=== PATIENT | female | born 1985 | race Two or more races ===

== ENCOUNTER → 2021-08-18 | Outpatient (CLI) | payer OTHER, SELFPAY | END | disposition home or self-care (01) | LOC: LABSPEC 11:38 | PROVIDERS: PCP Internal Medicine; Referring Provider Physician Assistant; Visit Provider Physician Assistant | DX: Z11.52 Encounter for screening for COVID-19 (principal) | CPT/HCPCS: 87635; U0005; U0003 ==

== ENCOUNTER 2021-08-24 15:51 | Outpatient (CLI) | payer OTHER, SELFPAY | END 2021-08-24 23:59 | disposition short-term general hospital (02) | LOC: LABSPEC 15:53 | PROVIDERS: PCP Internal Medicine; Referring Provider Physician Assistant Surgical; Visit Provider Physician Assistant Surgical | DX: Z11.52 Encounter for screening for COVID-19 (principal) | CPT/HCPCS: 87635; U0003; U0005 ==

== ENCOUNTER 2023-08-16 21:07 | Emergency (ER) | payer OTHER, SELFPAY ==
[2023-08-16 21:08] VITALS: BP 159/83; PULSE 69; RESP 18; TEMP 36.6; O2SAT 100; BMI 39.7
--- NOTE | 2023-08-16 21:50 | RAD_ITS ---
INDICATION: 3rd digit EXAMINATION/TECHNIQUE: X-RAY - LEFT XR Hand Min 3 Views COMPARISON: None. FINDINGS: SOFT TISSUES: Unremarkable. BONES/JOINTS: No fracture or dislocation. No significant degenerative changes. No erosive changes. RAD/Hand Min 3 Views IMPRESSION: Unremarkable views of the left hand. Electronically Signed: Edwin Man DO at 22:18 EST ,
--- NOTE | 2023-08-16 22:09 | EDS_ITS ---
HPI History of Present Illness Chief Complaint: Laceration Informant: patient Narrative Narrative: [id number] 37-year-old healthy female states she was cleaning a glass punch bowl when it broke and caused a laceration to her left middle finger. It was the glass that caused the laceration. Denies any loss of function she is not on any blood thinning agents. Tetanus Immunization: >10 years (About 11 years) PFSH PFSH Medical History no medical history no medical history Home Medications vits,calcium no.78-iron fumarate-folic acid 29 mg-1 mg tablet (Prenatabs FA) 1 tab PO DAILY 01/01/15 [History Last Taken 12/31/14 08:00] Allergy/AdvReac Type Severity Reaction Status Date / Time NSAIDS (Non-Steroidal Allergy Other Verified 08/16/23 21:09 Anti-Inflamma Social History Smoking Status: Never smoker ROS ROS ED Constitutional Constitutional ED: Denies chills or fever(s) Musculoskeletal Musculoskeletal: Reports extremity pain; Denies neck pain Integumentary Reports laceration; Denies Abrasions or rash Neurologic Neurologic: Denies paresthesias or weakness EXAM Physical Exam Const Vital Signs: 08/16/23 21:08 Temperature 97.8 F Temperature Source Temporal Pulse Rate 69 Respiratory Rate 18 Blood Pressure 159/83 H Blood Pressure Mean 108 Pulse Ox 100 Oxygen Delivery Method Room Air Positive well nourished and well developed General Appearance ED: well developed and NAD Neck full ROM and supple Back/Spine normal ROM and normal to inspection Extremity full ROM Extremity Narrative: V-shaped full-thickness clean appearing laceration to the pad of the left middle finger. No joint or nail involvement. Able to flex the DIPJ without difficulty. Neuro oriented x3, no focal motor deficits and no sensory deficits noted Sensorium / Orientation: alert Psych mental status grossly normal and thought process normal Skin Skin Narrative: Laceration pad of left middle finger, 3 cm total. Rashes: no rashes MDM MDM MDM Narrative Medical decision making narrative: Three-view x-rays of the left hand were obtained via nurse protocol order, on my interpretation 3 views negative for acute bony injury or radiopaque foreign body. We discussed options for anesthesia and local repair here, she was amen able to local let followed by local anesthesia and repair without digital block. Given appropriate discharge instructions. We did discuss tetanus update she wanted to wait, I think that is fine this is a low risk tetanus wound. Procedures Lacerations L middle finger pad: Length: 3 cm Depth: Sub Q Shape: Flap (V-shaped) Prep: Sterile Conditions and Chlorhexadine Number of Sutures/Ania: 7 Suture Information: Ethilon, Simple and 5-0 Discharge Plan Triage Chief Complaint: Laceration ED Provider: Jim Bell Dx/Rx/DC Orders Clinical Impression: Laceration of left middle finger w/o foreign body w/o damage to nail Instructions: ED Laceration, Hand: All Closures Prescriptions: No Action Prenatabs FA 1 TABLET tablet 1 tab PO DAILY Primary Care Provider: Seamus Cloud Referrals: Seamus Cloud DO [Primary Care Provider] - 10-14 Days suture removal Disposition Disposition: Home, Self Care
[2023-08-16] MEDS: Lidocaine/Epi/Tetracaine 50 ML 1 APPLIC TOPICAL (22:18)
--- OUTSIDE RECORDS SUMMARY | 2023-08-16 22:19 | XMS RPT_ITS | CCD ---
Author Name Unknown Address [address] [place] [address] Organization [facility] Care Team Providers Care New Home Sales Consultant Name Role Phone Seamus Erickson DO Primary Care Provider DREW GUNDERSON Attending Unavailable SEAMUS ERICKSON Primary Care Unavailable SEAMUS ERICKSON Primary Care Unavailable SEAMUS ERICKSON Primary Care Unavailable SEAMUS ERICKSON Referring Unavailable SEAMUS ERICKSON Primary Care Unavailable SEAMUS ERICKSON Attending Unavailable SEAMUS ERICKSON Primary Care Unavailable Allergies Allergy Classification Reported Allergen(s) Allergy Type Date of Onset Reaction(s) Facility (6 sources) Non-steroidal anti-inflammator y agent; Translations: [NSAIDS (NON-STEROIDAL ANTI-INFLAMMATOR Y DRUG)] Drug Allergy 02-17-2011 [facility] Work Phone: (9 sources) Non-steroidal anti-inflammator y agent Drug [facility] Medications Current Medications Medication Drug Class(es) Dates Sig (Normalized) Sig (Original) LORazepam 0.5 mg oral tablet (1 source) Benzodiazepine Start: 05-03-2023 End: 05-17-2023 take 1 tablet by mouth twice daily as needed for anxiety LORazepam (ATIVAN) 0.5 mg Indications: Bereavement , Situational anxiety Take 1 tablet by mouth twice daily as needed (anxiety attack, situational insomnia) for up to 14 days. 28 tablet 0 05/03/2023 05/17/2023 Active Completed/Discontinued Medications Medication Drug Class(es) Dates Sig (Normalized) Sig (Original) escitalopram 10 mg oral tablet (3 sources) Serotonin Reuptake Inhibitor Start: 05-03-2023 take 1 tablet by mouth once daily escitalopram oxalate (LEXAPRO) 10 mg tablet Indications: Bereavement , Situational anxiety Take 1 tablet by mouth once daily. 30 tablet 3 05/03/2023 Active Problems Active Problems Problem Classification Problem Date Documented Date Episodic/Chronic Anxiety disorders (14 sources) Anxiety; Translations: [Anxiety disorder, unspecified] Onset: 08-12-2009 08-16-2021 Chronic Genitourinary symptoms and ill-defined conditions (1 source) Increased frequency of urination; Translations: [Frequency of micturition] 05-08-2023 Episodic Immunizations and screening for infectious disease (1 source) Patient encounter status; Translations: [Encounter for screening for human papillomavirus (HPV)] Episodic Menopausal disorders (7 sources) Perimenopausal disorder; Translations: [Unspecified menopausal and perimenopausal disorder] Onset: 10-28-2022 Chronic Other injuries and conditions due to external causes (11 sources) Injury of right knee; Translations: [Unspecified injury of right lower leg, initial encounter] Onset: 01-11-2022 Episodic Other nervous system disorders (2 sources) Abnormal gait; Translations: [Unspecified abnormalities of gait and mobility] Episodic Other non-traumatic joint disorders (2 sources) Decreased range of knee movement; Translations: [Stiffness of right knee, not elsewhere classified] Episodic Other non-traumatic joint disorders (1 source) Effusion of right knee joint; Translations: [Effusion, right knee] Episodic Other nutritional; endocrine; and metabolic disorders (14 sources) Obesity; Translations: [Obesity, unspecified] Onset: 12-28-2011 08-16-2021 Chronic Past or Other Problems Problem Classification Problem Date Documented Da te Episodic/Chronic Abdominal hernia (14 sources) Umbilical hernia; Translations: [Umbilical hernia without obstruction or gangrene] Onset: 10-23-2014 10-23-2014 Episodic Other screening for suspected conditions (not mental disorders or infectious disease) (15 sources) Atypical glandular cells on cervical Papanicolaou smear; Translations: [Unspecified abnormal cytological findings in specimens from cervix uteri] Onset: 06-16-2020 06-16-2020 Episodic Residual codes; unclassified (16 sources) Kidney donor; Translations: [Kidney donors] Onset: 02-18-2010 08-16-2021 Episodic Viral infection (14 sources) Herpes simplex type 1 infection; Translations: [Herpesviral infection, unspecified] Onset: 08-16-2018 08-16-2018 Episodic Results Test Name Value Interpretation Reference Range Facil ity Vital Signs Date Time Vital Sign Value Performing Clinician Harry angelo 05-08-2023 09:20-0400 Body temperature 97.5 [degF] Celia Coleer FIRE PROTECTION ENGINEERING TECHNICIAN.HANDLE SANDER OPERATOR Work Phone: [facility] 05-08-2023 09:20-0400 Body weight 124.01 kg Celialeslie Coleer FIRE PROTECTION ENGINEERING TECHNICIAN.HANDLE SANDER OPERATOR Work Phone: [facility] 05-08-2023 09:20-0400 Diastolic blood pressure 83 mm[Hg] Celia Lenz FIRE PROTECTION ENGINEERING TECHNICIAN.HANDLE SANDER OPERATOR Work Phone: [facility] 05-08-2023 09:20-0400 Heart rate 57 /min Celia Coleer FIRE PROTECTION ENGINEERING TECHNICIAN.HANDLE SANDER OPERATOR Work Phone: [facility] 05-08-2023 09:20-0400 Respiratory rate 18 /min Celialeslie Coleer FIRE PROTECTION ENGINEERING TECHNICIAN.HANDLE SANDER OPERATOR Work Phone: [facility] 05-08-2023 09:20-0400 SaO2% (BldA) [Mass fraction] 99 % Celia Lenz FIRE PROTECTION ENGINEERING TECHNICIAN.HANDLE SANDER OPERATOR Work Phone: [facility] 05-08-2023 09:20-0400 Systolic blood pressure 136 mm[Hg] Celia Lenz FIRE PROTECTION ENGINEERING TECHNICIAN.HANDLE SANDER OPERATOR Work Phone: [facility] 10-28-2022 10:31-0500 Body height 180 cm Seamus Erickson DO Work Phone: [facility] 10-28-2022 10:31-0500 Body temperature 97 [degF] Seamus Erickson DO Work Phone: [facility] 10-28-2022 10:31-0500 Body weight 122.47 kg Seamus Erickson DO Work Phone: [facility] 10-28-2022 10:31-0500 Diastolic blood pressure 60 mm[Hg] Seamus Erickson DO Work Phone: [facility] 10-28-2022 10:31-0500 Heart rate 64 /min Seamus Erickson DO Work Phone: [facility] 10-28-2022 10:31-0500 Respiratory rate 16 /min Seamus Erickson DO Work Phone: [facility] 10-28-2022 10:31-0500 Systolic blood pressure 98 mm[Hg] Seamus Erickson DO Work Phone: [facility] 09-12-2022 10:02-0500 Body height 180.3 cm Drew Gunderson MD Work Phone: [facility] 09-12-2022 10:02-0500 Body weight 124.19 kg Drew Gunderson MD Work Phone: [facility] 09-12-2022 10:02-0500 Diastolic blood pressure 78 mm[Hg] Drew Gunderson MD Work Phone: [facility] 09-12-2022 10:02-0500 Systolic blood pressure 120 mm[Hg] Drew Gunderson MD Work Phone: [facility] 01-10-2022 11:23-0400 Body weight 120.66 kg Christy Rashid FIRE PROTECTION ENGINEERING TECHNICIAN.HANDLE SANDER OPERATOR Work Phone: [facility] 01-10-2022 11:23-0400 Diastolic blood pressure 68 mm[Hg] Christy Rashid FIRE PROTECTION ENGINEERING TECHNICIAN.HANDLE SANDER OPERATOR Work Phone: [facility] 01-10-2022 11:23-0400 Heart rate 71 /min Christy Rashid FIRE PROTECTION ENGINEERING TECHNICIAN.HANDLE SANDER OPERATOR Work Phone: [facility] 01-10-2022 11:23-0400 Respiratory rate 16 /min Christy Rashid FIRE PROTECTION ENGINEERING TECHNICIAN.HANDLE SANDER OPERATOR Work Phone: [facility] 01-10-2022 11:23-0400 SaO2% (BldA) [Mass fraction] 98 % Christy Rashid FIRE PROTECTION ENGINEERING TECHNICIAN.HANDLE SANDER OPERATOR Work Phone: [facility] 01-10-2022 11:23-0400 Systolic blood pressure 100 mm[Hg] Christy Rashid FIRE PROTECTION ENGINEERING TECHNICIAN.HANDLE SANDER OPERATOR Work Phone: [facility] Encounters Encounter Date Encounter Type Care Provider Facility Start: 06-23-2023 End: 06-23-2023 ambulatory Immunization [facility] Work Phone: [facility] Start: 05-08-2023 End: 05-08-2023 ambulatory SEAMUS Niharika ERICKSON Facility:[facility] Start: 05-08-2023 End: 05-08-2023 Patient encounter procedure Celialeslie Lenz FIRE PROTECTION ENGINEERING TECHNICIAN.HANDLE SANDER OPERATOR Work Phone: [facility] Procedures Date Procedure Procedure Detail Performing Clinician Start: 06-23-2023 PFIZER-BIONTECH COVI D-19 VACCINE ( SEASON) AGE 12+ YR Ab Uribe MD Work Phone: Start: 06-23-2023 INFLUENZA VACCINE, A GE 6 MO - 64 YR, QUADRIVALENT (AFLURIA, FLULAVAL, FLUZONE) Ab Uribe MD Work Phone: Start: 05-08-2023 Urnls dip stick/tabl et rgnt auto w/o microscopy Lilian Day APRN.HANDLE SANDER OPERATOR Work Phone: Start: 09-12-2022 Cytp c/v auto thin l yr prepj scr mnl rescr phys Drew Gunderson MD Work Phone: Start: 09-12-2022 Iadna human papillom avirus high-risk types Drew Gunderson MD Work Phone: Start: 05-14-2022 PFIZER-BIONTECH COVI D-19 BIVALENT BOOSTER VACCINE, AGE 12+ YR Dusty Figueroa MD Work Phone: Start: 05-14-2022 INFLUENZA VACCINE QUADRIVALENT 6 MO - 64 YRS IM Dusty Figueroa MD Work Phone: Start: 06-14-2021 Adult depression scr eening assessment Christy Mike FIRE PROTECTION ENGINEERING TECHNICIAN.HANDLE SANDER OPERATOR Work Phone: Plan of Treatment Date Care Activity Detail Author Start: 09-12-2027 HPV TESTING HPV TESTING [facility] Start: 09-12-2027 PAP TESTING PAP TESTING [facility] Start: 06-09-2025 HPV TESTING HPV TESTING [facility] Start: 06-09-2025 PAP TESTING PAP TESTING [facility] Start: 10-03-2024 Urine microalbumin profile [facility] Start: 05-08-2023 End: 07-08-2023 Bacteria identified in Urine by Culture [facility] Work Phone: Immunizations Immunization Date Immunization Notes Care Provider Milton garayashly 06-23-2023 COVID-19 vaccine, ag e 12+ yr, season (PFIZER-BIONTECH) Immunization [place] Work Phone: [facility] Work Phone: 06-23-2023 influenza, injectabl e, quadrivalent, contains preservative Immunization [place] Work Phone: [facility] Work Phone: 05-14-2022 COVID-19 booster vaccine, age 12+ yr, bivalent (PFIZER-BIONTECH) Immunization [place] Work Phone: [facility] Work Phone: 05-14-2022 influenza, injectabl e, quadrivalent, contains preservative Immunization [place] Work Phone: [facility] 05-14-2022 influenza virus vaccine, unspecified formulation Seamus Erickson DO Work Phone: [facility] 05-15-2021 influenza, injectabl e, quadrivalent, contains preservative Christy Rashid FIRE PROTECTION ENGINEERING TECHNICIAN.HANDLE SANDER OPERATOR Work Phone: [facility] Work Phone: 05-30-2020 influenza, injectabl e, quadrivalent, contains preservative Christy Rashid FIRE PROTECTION ENGINEERING TECHNICIAN.HANDLE SANDER OPERATOR Work Phone: [facility] 06-23-2019 influenza, injectabl e, quadrivalent, contains preservative Christy Rashid FIRE PROTECTION ENGINEERING TECHNICIAN.HANDLE SANDER OPERATOR Work Phone: [facility] 06-02-2018 influenza, injectabl e, quadrivalent, contains preservative Christy Rashid FIRE PROTECTION ENGINEERING TECHNICIAN.HANDLE SANDER OPERATOR Work Phone: [facility] 07-11-2016 influenza, seasonal, injectable Christy Rashid FIRE PROTECTION ENGINEERING TECHNICIAN.HANDLE SANDER OPERATOR Work Phone: [facility] Work Phone: 10-03-2014 tetanus toxoid, reduced diphtheria toxoid, and acellular pertussis vaccine, adsorbed Christy Rashid FIRE PROTECTION ENGINEERING TECHNICIAN.[facility] Work Phone: [facility] Work Phone: 06-02-2014 influenza, seasonal, injectable Christy Rashid FIRE PROTECTION ENGINEERING TECHNICIAN.[facility] Work Phone: [facility] Work Phone: 05-25-2012 influenza virus vaccine, unspecified formulation Christy Rashid FIRE PROTECTION ENGINEERING TECHNICIAN.[facility] Work Phone: [facility] Work Phone: 06-30-2011 influenza virus vaccine, unspecified formulation Christy Rashid FIRE PROTECTION ENGINEERING TECHNICIAN.[facility] Work Phone: [facility] Work Phone: 06-30-2011 tetanus toxoid, reduced diphtheria toxoid, and acellular pertussis vaccine, adsorbed Christy Rashid FIRE PROTECTION ENGINEERING TECHNICIAN.[facility] Work Phone: [facility] Work Phone: 03-25-1998 diphtheria and tetan us toxoids, adsorbed for pediatric use Christy Rashid FIRE PROTECTION ENGINEERING TECHNICIAN.[facility] Work Phone: [facility] Work Phone: 03-25-1998 hepatitis B vaccine, pediatric or pediatric/adolescent dosage Christy Rashid FIRE PROTECTION ENGINEERING TECHNICIAN.HANDLE SANDER OPERATOR Work Phone: [facility] Work Phone: 04-18-1997 hepatitis B vaccine, pediatric or pediatric/adolescent dosage Christy Rashid FIRE PROTECTION ENGINEERING TECHNICIAN.[facility] Work Phone: [facility] Work Phone: 03-14-1997 hepatitis B vaccine, pediatric or pediatric/adolescent dosage Christy Rashid FIRE PROTECTION ENGINEERING TECHNICIAN.[facility] Work Phone: [facility] Work Phone: 02-16-1996 measles, mumps and rubella virus vaccine Christy Rashid FIRE PROTECTION ENGINEERING TECHNICIAN.[facility] Work Phone: [facility] Work Phone: 10-26-1988 diphtheria, tetanus toxoids and acellular pertussis vaccine Christy Rashid FIRE PROTECTION ENGINEERING TECHNICIAN.[facility] Work Phone: [facility] Work Phone: 10-26-1988 trivalent poliovirus vaccine, live, oral Christy Rashid FIRE PROTECTION ENGINEERING TECHNICIAN.[facility] Work Phone: [facility] Work Phone: 10-12-1985 haemophilus influenz ae type b vaccine, HbOC conjugate Christy Rashid FIRE PROTECTION ENGINEERING TECHNICIAN.[facility] Work Phone: [facility] Work Phone: 07-25-1985 measles, mumps and rubella virus vaccine Christy Rashid FIRE PROTECTION ENGINEERING TECHNICIAN.[facility] Work Phone: [facility] Work Phone: 07-25-1985 trivalent poliovirus vaccine, live, oral Christy Rashid FIRE PROTECTION ENGINEERING TECHNICIAN.[facility] Work Phone: [facility] Work Phone: 01-02-1985 diphtheria, tetanus toxoids and acellular pertussis vaccine Christy Rashid FIRE PROTECTION ENGINEERING TECHNICIAN.[facility] Work Phone: [facility] Work Phone: 05-14-1984 DTaP-Haemophilus influenzae type b conjugate vaccine Christy Rashid FIRE PROTECTION ENGINEERING TECHNICIAN.HANDLE SANDER OPERATOR Work Phone: [facility] Work Phone: 02-29-1984 DTaP-Haemophilus influenzae type b conjugate vaccine Christy Rashid FIRE PROTECTION ENGINEERING TECHNICIAN.[facility] Work Phone: [facility] Work Phone: 02-29-1984 trivalent poliovirus vaccine, live, oral Christy Rashid FIRE PROTECTION ENGINEERING TECHNICIAN.[facility] Work Phone: [facility] Work Phone: 1983 DTaP-Haemophilus influenzae type b conjugate vaccine Christy Rashid FIRE PROTECTION ENGINEERING TECHNICIAN.HANDLE SANDER OPERATOR Work Phone: [facility] Work Phone: 1985 trivalent poliovirus vaccine, live, oral Christy Mike FIRE PROTECTION ENGINEERING TECHNICIAN.HANDLE SANDER OPERATOR Work Phone: [facility] Work Phone: Payers Date Payer Category Payer Private Health Insurance [employer] A ETNA CHOICE POS II [id number] 2019-Present [phone] [address] [place] [address] POS [id number] 2019 Private Health Insurance [id number] 2019 Private Health Insurance [id number] Social History Date Type Detail Facility Start: 10-28-2022 Tobacco smoking stat [facility] Never smoked tobacco [facility] Start: 01-10-2022 End: 05-08-2023 Alcohol intake Current drinker of alcohol (finding) [facility] Start: 06-14-2021 End: 10-24-2022 History SDOH Alcohol Frequency 3 [facility] Start: 06-14-2021 End: 10-24-2022 History SDOH Alcohol Std Drinks 1 [facility] Start: 06-14-2021 End: 10-24-2022 History SDOH Social Connections Phone 5 [facility] Start: 06-14-2021 End: 10-24-2022 History SDOH Social Connections Get Together 2 [facility] Start: 1985 Sex Assigned At Not on file [facility] Start: 12-31-2021 End: 01-10-2022 Exposure to SARS-CoV-2 (event) Not sure [facility] Start: 10-28-2022 Tobacco use and exposure Smoke less tobacco non-user [facility] Work Phone: Start: 10-24-2022 End: 06-23-2023 History of Social function [facility] Start: 10-24-2022 End: 06-23-2023 Social connection and isolation panel [facility] Do you belong to any clubs or organizations such as adventist groups, unions, fraternal or athletic groups, or school groups? Yes [facility] Are you now , , , , never or living with a partner? [facility] How often to you hav e a drink containing alcohol? 2-4 times a month [facility] How many standard dr inks containing alcohol do you have on a typical day? 1 or 2 [facility] How often do you hav e 6 or more drinks on 1 occasion? Never [facility] How hard is it for y ou to pay for the very basics like food, housing, medical care, and heating Not hard at all [facility] Do you feel stress - tense, restless, nervous, or anxious, or unable to sleep at night because your mind is troubled all the time - these days [OSQ] Not at all [facility] (I/We) worried wheth er (my/our) food would run out before (I/we) got money to buy more. Never true [facility] In the past 12 month s, was there a time when you were not able to pay the mortgage or rent on time? No [facility] Clinical Notes 05-25-2012 to 05-08-2023 Celia Lenz APRN.JUDY - 05/08/2023 9:25 AM EDTTelephone Encounter - Guerda Aldridge Ma - 05/02/2023 8:18 AM Wilber Erickson DO - 10/28/2022 11:19 AM EST Note Date & Type Note Facility 05-08-2023 Note HNO ID: [id number] Author: Celia Lenz APRN.JUDY Service: ? Author Type: Nurse Practitioner Type: Progress Notes Filed: 05/08/2023 9:47 AM Note Text: SUBJECTIVE: Shaniqua Theodore is a 37 year old female. Who presents today with concerns of a uti. She has had frequency of urine especially at night, she has pressure to go, fatigue headache. She has no burning with urination blood in the urine or fever. She has no back pain. She has been around others who have cold. Her last uti was in 2020. She has not taken any medications for her symptoms. She has just started lexapro and ativan and is wondering if this can cause her symptoms. She started these medications after her dad last month. She is crying in the exam room. She denies any SI or HI thoughts. She just wants to know what is wrong with her. 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 Current Outpatient Medications Medication Sig Dispense Refill LORazepam (ATIVAN) 0.5 mg Take 1 tablet by mouth twice daily as needed (anxiety attack, situational insomnia) for up to 14 days. 28 tablet 0 escitalopram oxalate (LEXAPRO) 10 mg tablet Take 1 tablet by mouth once daily. 30 tablet 3 No current facility-administered medications for this visit. OBJECTIVE: BP 136/83 Pulse (!) 57 Temp 36.4 ?C (97.5 ?F) Resp 18 Wt 124 kg (273 lb 6.4 oz) LMP 05/03/2023 (Exact Date) SpO2 99% BMI 38.28 kg/m? ROS all other systems reviewed and are negative Physical Exam Constitutional: Well developed, well nourished, NAD, AANDO X3. ENT: Head is atraumatic, airway patent, mucosal membranes moist. Neck: supple with no palpable lymph nodes Cardiac: Heart tone normal rate and rhythm Respiratory: Breath sounds clear GI: Abdomen soft and non-distended, non-tenderness, no rebound or guarding, bowel sounds normal. : no CVA tenderness MS: no swelling, tenderness or deformity in upper or lower extremities, no midline tenderness in cervical, thoracic or lumbar spine. Neuro: strength sensation and coordination intact. CN II-XII grossly intact, Skin: warm and dry with out rash, lesion or ecchymosis on exposed skin Psych: alert appropriate, speech clear tearful It was a pleasure to take care of Shaniqua Theodore today. A urine sample was obtained and dipped and it is negative. I will send for a urine culture. If this is positive for a bacterial infection she will be treated with an appropriate antibiotic. She will continue to f/u with her family md regarding her new medications. Patient will follow up with family physician. They may return to the Urgent Care or go to the ER for worsening symptoms or concerns. Patient verbalized understanding of plan of care and is in agreement. ASSESSMENT/PLAN: 1. Urinary frequency - ICD9: 788.41, ICD10: R35.0 - UA DIP, URINE (POC) - URINE CULTURE Celia Lenz APRN.[facility] 05-08-2023 History of Present illness Narrative SUBJECTIVE: Shaniqua Theodore is a 37 year old female. Who presents today with concerns of a uti. She has had frequency of urine especially at night, she has pressure to go, fatigue headache. She has no burning with urination blood in the urine or fever. She has no back pain. She has been around others who have cold. Her last uti was in 2020. She has not taken any medications for her symptoms. She has just started lexapro and ativan and is wondering if this can cause her symptoms. She started these medications after her dad last month. She is crying in the exam room. She denies any SI or HI thoughts. She just wants to know what is wrong with her. 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 Current Outpatient Medications Medication Sig Dispense Refill LORazepam (ATIVAN) 0.5 mg Take 1 tablet by mouth twice daily as needed (anxiety attack, situational insomnia) for up to 14 days. 28 tablet 0 escitalopram oxalate (LEXAPRO) 10 mg tablet Take 1 tablet by mouth once daily. 30 tablet 3 No current facility-administered medications for this visit. OBJECTIVE: BP 136/83 Pulse (!) 57 Temp 36.4 C (97.5 F) Resp 18 Wt 124 kg (273 lb 6.4 oz) LMP 05/03/2023 (Exact Date) SpO2 99% BMI 38.28 kg/m ROS all other systems reviewed and are negative Physical Exam Constitutional: Well developed, well nourished, NAD, A&O X3. ENT: Head is atraumatic, airway patent, mucosal membranes moist. Neck: supple with no palpable lymph nodes Cardiac: Heart tone normal rate and rhythm Respiratory: Breath sounds clear GI: Abdomen soft and non-distended, non-tenderness, no rebound or guarding, bowel sounds normal. : no CVA tenderness MS: no swelling, tenderness or deformity in upper or lower extremities, no midline tenderness in cervical, thoracic or lumbar spine. Neuro: strength sensation and coordination intact. CN II-XII grossly intact, Skin: warm and dry with out rash, lesion or ecchymosis on exposed skin Psych: alert appropriate, speech clear tearful It was a pleasure to take care of Shaniqua Theodore today. A urine sample was obtained and dipped and it is negative. I will send for a urine culture. If this is positive for a bacterial infection she will be treated with an appropriate antibiotic. She will continue to f/u with her family md regarding her new medications. Patient will follow up with family physician. They may return to the Urgent Care or go to the ER for worsening symptoms or concerns. Patient verbalized understanding of plan of care and is in agreement. ASSESSMENT/PLAN: 1. Urinary frequency - ICD9: 788.41, ICD10: R35.0 - UA DIP, URINE (POC) - URINE CULTURE Celia Lenz APRN.HANDLE SANDER OPERATOR documented in this encounter [facility] 05-02-2023 Miscellaneous Notes See phone note 05/02/23 documented in this encounter [facility] 10-28-2022 Note HNO ID: [id number] Author: Seamus Erickson, DO Service: ? Author Type: Physician Type: Progress Notes Filed: 10/28/2022 11:22 AM Note Text: CC: Shaniqua Theodore is a 37 year old female who presents to the office for physical HPI: Overall doing well No specific concerns, hx of being a left kidney donor in the past. 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 Allergies: ALLERGIES Allergen Reactions Nsaids (Non-Steroid* Contraindication-Medical Surgical Patient donated one kidney 12/10/10. ROS: See HPI PE: 10/28/22 1031 BP: 98/60 Pulse: 64 Resp: 16 Temp: 36.1 ?C (97 ?F) TempSrc: Right Tympanic Weight: 122.5 kg (270 lb) Height: 180 cm (5' 10.87 ) Gen: AANDO, NAD, non-toxic appearing, Pleasant, cooperative HEENT: NT/AC, PERRLA, EOMs intact b/l, nares clear and patent b/l, pharynx without erythema, exudate or lesions. MMM, Uvula midline. EACs without erythema or debris. TMs pearly cristobal with intact landmarks b/l. Neck: supple, No cervical LAD, no thyromegaly, no carotid bruits CV: RRR, normal S1 and S2, no murmurs, no gallops, no rubs, Pulses 2+ and symmetric in UE and LE b/l Lungs: normal respiratory effort, CTA b/l, no wheezing or rhonchi or rales Abd: soft, NT, ND, +BS, no hepatosplenomegaly MS: FROM all 4 extremities Neuro: CN II-XII intact b/l, strength 5/5 b/l UE and LE, DTRs 2/4 UE and LE, sensation intact. Skin: warm, dry, intact, No rashes or lesions on exposed skin. No edema, normal pulses ASSESSMENT/PLAN: 1. Well adult exam - ICD9: V70.0, ICD10: Z00.00 (primary diagnosis) - Counseled on healthy diet and regular exercise - Calcium intake with supplements or by diet of 1000 mg/day for under 50, 4693-5773 mg/day for 50+ - Discussed need and benefit for weight loss. BMI 37.80 kg/(m2) 2. Kidney donor - ICD9: V59.4, ICD10: Z52.4 - check labs as ordered. 3. Perimenopausal disorder - ICD9: 627.9, ICD10: N95.9 - check labs as ordered Seamus Erickson DO To ER if develops chest pain, shortness of breath, or severe worsening of symptoms. Discussed risks, benefits, alternatives, and potential side effects of medications. Patient expressed understanding and agreed with the plan. Seamus Erickson DO [address] [place] [address] [facility] 10-28-2022 History of Present illness Narrative CC: Shaniqua Theodore is a 37 year old female who presents to the office for physical HPI: Overall doing well No specific concerns, hx of being a left kidney donor in the past. PAST MEDICAL HISTORY Diagnosis Date Anxiety 08/12/2009 Atypical glandular cells of undetermined significance (KIM) on cervical Pap smear 06/16/2020 Dysthymic disorder Depression (non-psychotic) Generalized anxiety disorder Anxiety, Generalized Kidney donor 12/10/10 PAST SURGICAL HISTORY Procedure Laterality Date PAST SURGICAL HISTORY OF 12/10/10 Left Kidney Donor TONSILLECTOMY PRIMARY/SECONDARY <AGE 12 Social History: Social History Tobacco Use Smoking status: Never Smokeless tobacco: Never Vaping Use Vaping Use: Never used Substance Use Topics Alcohol use: Yes Drug use: No FAMILY HISTORY Problem Relation Age of Onset other (Irregular heart beat) Mother Heart Paternal Grandfather Breast Cancer Maternal Aunt Current Outpatient prescriptions: No prescriptions on file. Allergies: ALLERGIES Allergen Reactions Nsaids (Non-Steroid* Contraindication-Medical Surgical Patient donated one kidney 12/10/10. ROS: See HPI PE: 10/28/22 1031 BP: 98/60 Pulse: 64 Resp: 16 Temp: 36.1 C (97 F) TempSrc: Right Tympanic Weight: 122.5 kg (270 lb) Height: 180 cm (5' 10.87 ) Gen: A&O, NAD, non-toxic appearing, Pleasant, cooperative HEENT: NT/AC, PERRLA, EOMs intact b/l, nares clear and patent b/l, pharynx without erythema, exudate or lesions. MMM, Uvula midline. EACs without erythema or debris. TMs pearly cristobal with intact landmarks b/l. Neck: supple, No cervical LAD, no thyromegaly, no carotid bruits CV: RRR, normal S1 and S2, no murmurs, no gallops, no rubs, Pulses 2+ and symmetric in UE and LE b/l Lungs: normal respiratory effort, CTA b/l, no wheezing or rhonchi or rales Abd: soft, NT, ND, +BS, no hepatosplenomegaly MS: FROM all 4 extremities Neuro: CN II-XII intact b/l, strength 5/5 b/l UE and LE, DTRs 2/4 UE and LE, sensation intact. Skin: warm, dry, intact, No rashes or lesions on exposed skin. No edema, normal pulses ASSESSMENT/PLAN: 1. Well adult exam - ICD9: V70.0, ICD10: Z00.00 (primary diagnosis) - Counseled on healthy diet and regular exercise - Calcium intake with supplements or by diet of 1000 mg/day for under 50, 7648-9916 mg/day for 50+ - Discussed need and benefit for weight loss. BMI 37.80 kg/(m^2) 2. Kidney donor - ICD9: V59.4, ICD10: Z52.4 - check labs as ordered. 3. Perimenopausal disorder - ICD9: 627.9, ICD10: N95.9 - check labs as ordered Seamus Erickson, DO To ER if develops chest pain, shortness of breath, or severe worsening of symptoms. Discussed risks, benefits, alternatives, and potential side effects of medications. Patient expressed understanding and agreed with the plan. Seamus Erickson DO [address] [place] [address] documented in this encounter [facility] 09-12-2022 Note HNO ID: [id number] Author: Drew Gunderson MD Service: ? Author Type: Physician Type: Progress Notes Filed: 09/19/2022 8:04 AM Note Text: Predatory Animal Trapper offered: Patient declines. Shaniqua is a 36 year old who presents for an annual gynecologic exam without complaints. Menses: cycles every 26-28 days and 5 days flow. Spotting just prior to start of menses with intercourse. Otherwise not post coital spotting. 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 Comments: Sexual Activity: Yes; Male Contraception: None, Vasectomy PAST MEDICAL HISTORY Diagnosis Date Anxiety 08/12/2009 Atypical glandular cells of undetermined significance (KIM) on cervical Pap smear 06/16/2020 Dysthymic disorder Depression (non-psychotic) Generalized anxiety disorder Anxiety, Generalized Kidney donor 12/10/10 PAST SURGICAL HISTORY Procedure Laterality Date PAST SURGICAL HISTORY OF 12/10/10 Left Kidney Donor TONSILLECTOMY PRIMARY/SECONDARY FAMILY HISTORY Problem Relation Age of Onset other (Irregular heart beat) Mother Heart Paternal Grandfather Breast Cancer Maternal Aunt SOCIAL HISTORY Social History Tobacco Use Smoking status: Never Smokeless tobacco: Never Vaping Use Vaping Use: Never used Substance Use Topics Alcohol use: Yes Drug use: No REVIEW OF SYSTEMS Abdomen: No abdominal pain, nausea, vomiting, diarrhea, or constipation. No bloating, early satiety, indigestion, or increased flatulence. Bladder: No dysuria, gross hematuria, urinary frequency, urinary urgency, or incontinence. Breast: No breast lumps, nipple d/c, overlying skin changes, redness or skin retraction. Allergies and current medication updated:Yes EXAM: BP 120/78 Ht 5' 11 (1.80m) Wt 273 lb 12.8 oz (124.2kg) LMP 08/27/2022 BMI 38.20 kg/(m2). GENERAL: pleasant, female in no apparent distress HEENT: Normocephalic, atraumatic, mucus membranes moist, and no lesions NECK: full range of motion DERMATOLOGY: Normal, without lesions, non-icteric, and non-hirsute BREAST: soft, non-tender, symmetric, no dominant mass, normal nipple-areolar complex, no lymphadenopathy, and no nipple discharge CHEST: Normal inspiratory effort ABDOMEN: soft, non-tender, and no masses PELVIC: external genitalia normal, normal Bartholin's glands, urethra, Adell's glands, no vulvar lesions, no cervical lesions, good vaginal support, physiologic discharge present, normal appearing perineal body and perianal region BIMANUAL: uterus normal size, shape and consistency, no adnexal masses, and non-tender RECTOVAGINAL: deferred. NEURO: exam grossly non-focal EXTREMITIES: normal ASSESSMENT/PLAN: 1) Health maintenance: Pap done with HPV. Mammogram starting age 40. Nutrition, exercise and routine health maintenance exams reviewed. 2) Contraception: vasectomy. Contraceptive options reviewed and information provided. 3) STD screening: Declined STD check. 4) Follow up one year or sooner as needed Drew Gunderson DO [facility] 09-12-2022 History of Present illness Narrative Predatory Animal Trapper offered: Patient declines. Shaniqua is a 36 year old who presents for an annual gynecologic exam without complaints. Menses: cycles every 26-28 days and 5 days flow. Spotting just prior to start of menses with intercourse. Otherwise not post coital spotting. 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 Comments: Sexual Activity: Yes; Male Contraception: None, Vasectomy PAST MEDICAL HISTORY Diagnosis Date Anxiety 08/12/2009 Atypical glandular cells of undetermined significance (KIM) on cervical Pap smear 06/16/2020 Dysthymic disorder Depression (non-psychotic) Generalized anxiety disorder Anxiety, Generalized Kidney donor 12/10/10 PAST SURGICAL HISTORY Procedure Laterality Date PAST SURGICAL HISTORY OF 12/10/10 Left Kidney Donor TONSILLECTOMY PRIMARY/SECONDARY <AGE 12 FAMILY HISTORY Problem Relation Age of Onset other (Irregular heart beat) Mother Heart Paternal Grandfather Breast Cancer Maternal Aunt SOCIAL HISTORY Social History Tobacco Use Smoking status: Never Smokeless tobacco: Never Vaping Use Vaping Use: Never used Substance Use Topics Alcohol use: Yes Drug use: No REVIEW OF SYSTEMS Abdomen: No abdominal pain, nausea, vomiting, diarrhea, or constipation. No bloating, early satiety, indigestion, or increased flatulence. Bladder: No dysuria, gross hematuria, urinary frequency, urinary urgency, or incontinence. Breast: No breast lumps, nipple d/c, overlying skin changes, redness or skin retraction. Allergies and current medication updated:Yes EXAM: BP 120/78 Ht 5' 11 (1.80m) Wt 273 lb 12.8 oz (124.2kg) LMP 08/27/2022 BMI 38.20 kg/(m^2). GENERAL: pleasant, female in no apparent distress HEENT: Normocephalic, atraumatic, mucus membranes moist, and no lesions NECK: full range of motion DERMATOLOGY: Normal, without lesions, non-icteric, and non-hirsute BREAST: soft, non-tender, symmetric, no dominant mass, normal nipple-areolar complex, no lymphadenopathy, and no nipple discharge CHEST: Normal inspiratory effort ABDOMEN: soft, non-tender, and no masses PELVIC: external genitalia normal, normal Bartholin's glands, urethra, Adell's glands, no vulvar lesions, no cervical lesions, good vaginal support, physiologic discharge present, normal appearing perineal body and perianal region BIMANUAL: uterus normal size, shape and consistency, no adnexal masses, and non-tender RECTOVAGINAL: deferred. NEURO: exam grossly non-focal EXTREMITIES: normal ASSESSMENT/PLAN: 1) Health maintenance: Pap done with HPV. Mammogram starting age 40. Nutrition, exercise and routine health maintenance exams reviewed. 2) Contraception: vasectomy. Contraceptive options reviewed and information provided. 3) STD screening: Declined STD check. 4) Follow up one year or sooner as needed Drew Gunderson DO documented in this encounter [facility] 02-17-2022 History of Present illness Narrative Episode Visit Count: 5 Therapist That Will Oversee The Plan Of Care: Marisa Erickson PT Start of Care Date: 01/11/22 Onset Date: 12/21/21 Patient Identified by Name and Date of : Yes REHABILITATION AND SPORTS THERAPY PHYSICAL THERAPY PROGRESS REPORT PLAN OF CARE UPDATE: Assessment: Shaniqua Theodore demonstrates moderate improvement in walking in the community, stair negotiation and physical activities. She hasprogressed toward goals but had setback with return of pain 2 weeks ago with lifting sandbags . Patient continues to present with impairments in ADL's, overall function, strength and tissue tenderness that interfere with . Current prognosis is . She will benefit from continued skilled therapy services to meet the updated goals for this plan of care as noted below. Goals for Episode of Care: created on 01/11/22 through 02/23/22 updated 02/17/22 [place] in home exercise program./ achieved Patient will increase active ROM of right knee to equal left to allow pt to to improve performance of ADLs./ partially achieved Patient will demonstrate increase in right knee strength to 5/5 during manual muscle testing in order to improve function for prior functional tasks./ partially achieved Patient will increase flexibility of quads and hamstrings to 120 and 70 degrees to improve mechanics and decrease pain./ partially achieved Perform stairs, standing and walking with decreased report of symptoms/pain in 4 weeks./ partially achieved Reciprocal stair negotiation./ achieved Patient Goals: alleviate pain,/ partially achieved Planned Interventions, Frequency, and Duration: (pt to call to schedule appts as needed), 8 weeks Total Number of Visits Planned: 4 Patient to be seen for Therapeutic exercise ([id number]);Neuromuscular re-education ([id number]);Manual therapy ([id number]);Self-group home management ([id number]);Patient/Family/Caregiver Education PLAN FOR NEXT VISIT: will upgrade exs as needed SUBJECTIVE: Patient Reason for Visit: Pt notes that 2 weeks ago she reinjured her knee. Wonders if it was from lifting sand bags. has been getting steadily better. Currently she is 50% back to where she was . Notes that she feels confident to go back through progression of exs to return to full function. Pain: Pain Pain Level: 3 Pain Location: Knee - Right Description: Aching Post Treatment Pain Post Treatment Pain Level: No Change Post Treatment Pain Location: Knee - Right PROMIS Scales Higher is Better 01/10/2022 02/09/2022 02/17/2022 Phys Func - Score 38 (moderate dysfunction) 44 (mild dysfunction) 43 (mild dysfunction) Phys Func - Percentile 12 % 27 % 24 % Social Roles - Score 46 (within normal limits) 46 (within normal limits) 57 (within normal limits) Social Role - Percentile 34 % 34 % 76 % GH Physical - Score 44.9 (Good) - - GH Physical - Percentile 31 % - - GH Mental - Score 56 (Excellent) - - GH Mental - Percentile 73 % - - Self-Eff Symptom - Score 48 (Average) 52 (Average) 52 (Average) Self-Eff Symptom - Percentile 42 % 58 % 58 % T-scores: mean of general population = 50. 5 points is clinically meaningfully difference Percentiles provide an indication of how the patient's score ranks in relation to the general population. Higher percentile rankings indicate better function/quality of life. 50th percentile is the average of the general population and indicates half of respondents had a worse score. Lower is Better 01/10/2022 02/09/2022 02/17/2022 Fatigue - Score 47 (within normal limits) 45 (within normal limits) 45 (within normal limits) Fatigue - Percentile 62 % 69 % 69 % T-scores: mean of general population = 50. 5 points is clinically meaningfully difference Percentiles provide an indication of how the patient's score ranks in relation to the general population. Higher percentile rankings indicate better function/quality of life. 50th percentile is the average of the general population and indicates half of respondents had a worse score. OBJECTIVE MEASURES WITH LEVEL OF FUNCTION: LE AROM R Knee Extension: 0 Degrees R Knee Flexion: 134 Degrees LE Flexibility R Hamstring Flexibility: 80 R Quadriceps Flexibility: 120 LE Strength R Knee Extension (L3): 4+/5 R Knee Flexion: 5/5 Functional Strength Functional Strength: trouble with extensive stairs and squatting Special Tests - Knee Knee Special Tests: (pain along peripatellar area medial and lateral) Gait Gait Observation: no deviations TREATMENT: Therapeutic Exercise: 1: quad sets 1x10 2: SLR 1x10 3: bridge 1x10 4: SAQ 10 sec hold 2x5 5: discussed sidelying hip abduction , unilateral stance and step ups to be added gradually as tolerated 6: reviewed performing exs to avoid pain, limit ROM or effort to avoid pain 7: green rep band hamstring curls 1x10 8: green rep band TKE 1x10 Skilled Intervention: Patient was educated in proper exercise technique and purpose for exercises. Reviewed and educated patient on additions/changes for home exercise program . Skilled judgment was provided in selection of appropriate interventions. Provided written instruction for home exercise program to facilitate proper performance and compliance. Correct performance of therapeutic exercises was facilitated with verbal and visual cuing. Patient education as noted. Home Exercise Program Assigned: 1: add SAQ currently 2: gradually add other exs as tolerated Billing Therapeutic Exercise Treatment Minutes: 30 Total Treatment Time Minutes (timed/untimed): 30 Marisa Erickson PT documented in this encounter [facility] 02-03-2022 History of Present illness Narrative Episode Visit Count: 4 Therapist That Will Oversee The Plan Of Care: Marisa Erickson PT Start of Care Date: 01/11/22 Onset Date: 12/21/21 Patient Identified by Name and Date of : Yes REHABILITATION AND SPORTS THERAPY PHYSICAL THERAPY TREATMENT NOTE ASSESSMENT: Shaniqua Theodore tolerated the session with no issues. She demonstrated improvements in stair climbing . The patient will continue to benefit from ongoing skilled physical therapy to progress toward set goals. PLAN FOR NEXT VISIT: POC with probable discharge SUBJECTIVE: Patient Reason for Visit: Pt notes that newly added exs went well. Pt notes no pain today. Able to do 4 flights of steps without appreciable pain. Overall daily function is going well. Pain: Pain Pain Level: 0 Pain Location: Knee - Right Post Treatment Pain Post Treatment Pain Level: No Change OBJECTIVE MEASURES WITH LEVEL OF FUNCTION: LE AROM R Knee Extension: 0 Degrees R Knee Flexion: 140 Degrees TREATMENT: Therapeutic Exercise: 2: unilateral stance with leg lifts left forward backward and side 2x10 3: 6 step up 2x10 5: sidelying hip abduction 1x10, abudction circles front and back 1x10 each 6: education on progression of exs as well as decreasing frequency of exs once she has achieved return to full status 7: purple and green rep band hamstring curls 2x15 8: purple and green rep band TKE 2x15 Skilled Intervention: Patient was educated in proper exercise technique and purpose for exercises. Reviewed and educated patient on additions/changes for home exercise program . Skilled judgment was provided in selection of appropriate interventions. Correct performance of therapeutic exercises was facilitated with verbal and visual cuing. Patient education as noted. Home Exercise Program Assigned: 1: add green band to purple 2: increase height of step as tolerated or increase reps Billing Therapeutic Exercise Treatment Minutes: 23 Total Treatment Time Minutes (timed/untimed): 23 Marisa Erickson PT documented in this encounter [facility] 01-20-2022 History of Present illness Narrative Episode Visit Count: 2 Therapist That Will Oversee The Plan Of Care: Marisa Erickson PT Start of Care Date: 01/11/22 Onset Date: 12/21/21 Patient Identified by Name and Date of : Yes REHABILITATION AND SPORTS THERAPY PHYSICAL THERAPY TREATMENT NOTE ASSESSMENT: Shaniqua Theodore tolerated the session with no issues. She demonstrated improvements in form with exs. The patient will continue to benefit from ongoing skilled physical therapy to progress toward set goals. PLAN FOR NEXT VISIT: Consider patellar mobilization . Work on unilateral stance balance SUBJECTIVE: Patient Reason for Visit: Pt notes that sometimes bridges bother her knee Pain: Pain Pain Level: 4 Pain Location: Knee - Right Description: Aching Post Treatment Pain Post Treatment Pain Level: No Change Post Treatment Pain Location: Knee - Right OBJECTIVE MEASURES WITH LEVEL OF FUNCTION: Able to complete sit to stand without arms with no reports of increased pain TREATMENT: Therapeutic Exercise: 1: quad sets 5 sec hold x12 2: SLR 2x12 3: prone quad stretch 30 sec hold x3 4: bridges 1x12 with TA 5: sidelying hip abduction 1x10 6: seated hamstring stretch 30 sec x3 7: purple rep band hamstring curls 1x10 8: purple rep band TKE Skilled Intervention: Patient was educated in proper exercise technique and purpose for exercises. Reviewed and educated patient on additions/changes for home exercise program . Skilled judgment was provided in selection of appropriate interventions. Provided written instruction for home exercise program to facilitate proper performance and compliance. Correct performance of therapeutic exercises was facilitated with verbal and visual cuing. Educated patient on rationale for performing exercises in regards to ROM and function . Patient education as noted. Self-Senior Care Management: 1: discussed proper leg position for sit to stand to decrease stress to knee Skilled Intervention: Skilled judgment in the selection of proper modification for activity of daily living/home management based on clinical presentation, deficits, and needs. Reviewed patient specific diagnosis in relation to activities of daily living/home management. Home Exercise Program Assigned: 1: sidelying hip abduction 1x10 2: seated hamstring stretch 30 sec x3 3: purple rep band hamstring curls 1x10 4: purple rep band TKE Billing Therapeutic Exercise Treatment Minutes: 30 Self-Care/Home Management Treatment Minutes: 5 Total Treatment Time Minutes (timed/untimed): 35 Marisa Erickson PT documented in this encounter [facility] 01-12-2022 History of Present illness Narrative Episode Visit Count: 1 Therapist That Will Oversee The Plan Of Care: Marisa Erickson PT Start of Care Date: 01/11/22 Onset Date: 12/21/21 Patient Identified by Name and Date of : Yes REHABILITATION AND SPORTS THERAPY PHYSICAL THERAPY EVALUATION PLAN OF CARE: Assessment: Shaniqua Theodore presents with chief complaint of right knee pain that interferes with physical activities;walking in the community;recreational activities;squatting;stair negotiation . She presents with impairments in ADL's, overall function, range of motion, strength and sx consistent with patellofemoral and tendon area pain . PROMIS (Patient-Reported Outcomes Measurement Information System) scores were reviewed and physical function domain identified as a rehabilitation concern. Prognosis for therapy is Good due to: current objective clinical presentation . She will benefit from skilled therapy services to meet the goals established for this plan of care as noted below. Goals for Episode of Care: created on 01/11/22 through 02/23/22 [place] in home exercise program. Patient will increase active ROM of right knee to equal left to allow pt to to improve performance of ADLs. Patient will demonstrate increase in right knee strength to 5/5 during manual muscle testing in order to improve function for prior functional tasks. Patient will increase flexibility of quads and hamstrings to 120 and 70 degrees to improve mechanics and decrease pain. Perform stairs, standing and walking with decreased report of symptoms/pain in [address] Reciprocal stair negotiation. Patient Goals: alleviate pain, Planned Interventions, Frequency, and Duration: Current Frequency: 1x/week Duration: 4 weeks Total Number of Visits Planned: 4 Planned Treatment Interventions: Therapeutic exercise (04753);Neuromuscular re-education (68256);Manual therapy (84367);Therapeutic activities (84494);Self-group home management (31223);Patient/Family/Caregiver Education;Gait Training (94453) PLAN FOR NEXT VISIT: Will advance to sidelying hip abduction , rep band TKE and hamstring curls Patient demonstrates good understanding of plan of care and treatment. The above goals and plan of care were discussed and agreed upon by patient/family. 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 Hobbies / Interests: working out/ riding, hiking Home Environment Patient Lives With: Spouse Intake Information: Prescription present Previous Treatment: Ice (elevation , ibuprofen , brace at work) Pain: Pain Pain Level: 4 Pain Location: Knee - Right (medial aspect) Description: Aching Post Treatment Pain Post Treatment Pain Level: No Change Post Treatment Pain Location: Knee - Right PROMIS Scales Higher is Better 06/14/2021 01/10/2022 Phys Func - Score - 38 (moderate dysfunction) Phys Func - Percentile - 12 % Social Roles - Score - 46 (within normal limits) Social Role - Percentile - 34 % GH Physical - Score 50.8 (Very Good) 44.9 (Good) GH Physical - Percentile 53 % 31 % GH Mental - Score 59 (Excellent) 56 (Excellent) GH Mental - Percentile 82 % 73 % Self-Eff Symptom - Score - 48 (Average) Self-Eff Symptom - Percentile - 42 % T-scores: mean of general population = 50. 5 points is clinically meaningfully difference Percentiles provide an indication of how the patient's score ranks in relation to the general population. Higher percentile rankings indicate better function/quality of life. 50th percentile is the average of the general population and indicates half of respondents had a worse score. Lower is Better 01/10/2022 Fatigue - Score 47 (within normal limits) Fatigue - Percentile 62 % T-scores: mean of general population = 50. 5 points is clinically meaningfully difference Percentiles provide an indication of how the patient's score ranks in relation to the general population. Higher percentile rankings indicate better function/quality of life. 50th percentile is the average of the general population and indicates half of respondents had a worse score. OBJECTIVE MEASURES WITH LEVEL OF FUNCTION: Knee Observations R Knee Palpation Tenderness: Patellar tendon;Quadriceps tendon;Patellar inferior pole LE AROM R Knee Extension: -5 Degrees R Knee Flexion: 120 Degrees L Knee Extension: 0 Degrees L Knee Flexion: 142 Degrees LE Flexibility Flexibility: Hamstring Flexibility;Quadriceps Flexibility R Hamstring Flexibility: 60 R Quadriceps Flexibility: 80 LE Joint Mobility R Patellar Mobility: WNL LE Strength R Hip Flexion (L2): 5/5 R Hip ABduction: 4+/5 R Knee Extension (L3): 4+/5 R Knee Flexion: 5/5 R Ankle Dorsiflexion (L4): 5/5 Functional Strength Functional Strength: difficulty with walking squatting stairs Gait Weight Bearing Status: FWB Gait: Independent Education: Education Learning Preferences: Demonstration;Explanation;Perform ance;Printed Materials Barriers: None Learning/educational needs: Home exercise program;Plan of Care Education Provided: Yes, see treatment interventions for education provided Education Provided To: Patient Education Mode/Type: Demonstration;Explanation/Discuss ion;Literature/Printed Materials;Performance Response to Education/Teach Back: States/Identifies;Return Demonstration TREATMENT: PT Treatment Interventions: Therapeutic Exercise Evaluation Therapeutic Exercise: 1: quad sets 5 sec hold x10 2: SLR 1x10 3: proen quad stretch 30 sec hold x3 4: bridges 1x10 with TA Skilled Intervention: Patient was educated in proper exercise technique and purpose for exercises. Skilled judgment was provided in selection of appropriate interventions. Provided written instruction for home exercise program to facilitate proper performance and compliance. Correct performance of therapeutic exercises was facilitated with verbal and visual cuing. Educated patient on rationale for performing exercises in regards to ROM and function . Patient education as noted. Home Exercise Program Assigned: 1: as outlined above Billing * Evaluation Low Complexity: 1 Unit Therapeutic Exercise Treatment Minutes: 25 Total Treatment Time Minutes (timed/untimed): 45 Marisa Erickson PT documented in this encounter [facility] 01-12-2022 Miscellaneous Notes Noted. Sounds good. Thank you, Mimi Blackmon APRN.CNP Patient returned call, given below recommendation. Shaniqua went to PT @ [place] today, she would like to complete several weeks of PT before deciding if she will go for consult to ortho. Glenda Mcbride LPN Message left to return call. Please let Shaniqua know that she does have a moderate joint infusion, which is fluid on her knee. I'd like her to see orthopedics to see if they feel that this is something that can treat. Please assist her to schedule this appointment. Christy Mike APRN.JUDY documented in this encounter [facility] documented as of this encounter (statuses as of 05/14/2022) [facility]05-24-2022 History of Past illness Narrative* Problem Noted Date Resolved Date Knee injury, right, initial encounter 01/11/2022 04/22/2022 Supervision of other normal 05/25/2012 03/17/2015 Overview: Girl on us- steph Patient requested diagnostic testing 02/13/2012 03/17/2015 Overview: negative Sequential screen first trimester. The first part of the Sequential Screen reports that her risk for Down syndrome decreased from her age-related risk of 1:620 to 1:10,000 and her Trisomy 18 risk decreased from her age-related risk of 1:2,200 to 1:10,000. Based on these results Dr. Doll's recommendation is for patient to follow-up with AFP blood draw after 15wks to screen for ONTD and level II anatomy scan after 18wks. 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 Overview: Depression (non-psychotic) Generalized anxiety disorder Overview: Anxiety, Generalized documented as of this encounter (statuses as of 09/19/2022) [facility] History of Past illness Narrative* Problem Noted Date Resolved Date Knee injury, right, initial encounter 01/11/2022 04/22/2022 Supervision of other normal 05/25/2012 03/17/2015 Overview: Girl on us- steph Patient requested diagnostic testing 02/13/2012 03/17/2015 Overview: negative Sequential screen first trimester. The first part of the Sequential Screen reports that her risk for Down syndrome decreased from her age-related risk of 1:620 to 1:10,000 and her Trisomy 18 risk decreased from her age-related risk of 1:2,200 to 1:10,000. Based on these results Dr. Doll's recommendation is for patient to follow-up with AFP blood draw after 15wks to screen for ONTD and level II anatomy scan after 18wks. 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 The first part of the Sequential Screen reports that her risk for Down syndrome decreased from her age-related risk of 1:620 to 1:10,000 and her Trisomy 18 risk decreased from her age-related risk of 1:2,200 to 1:10,000. Based on these results Dr. Doll's recommendation is for patient to follow-up with AFP blood draw after 15wks to screen for ONTD and level II anatomy scan after 18wks. 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 The first part of the Sequential Screen reports that her risk for Down syndrome decreased from her age-related risk of 1:620 to 1:10,000 and her Trisomy 18 risk decreased from her age-related risk of 1:2,200 to 1:10,000. Based on these results Dr. Doll's recommendation is for patient to follow-up with AFP blood draw after 15wks to screen for ONTD and level II anatomy scan after 18wks. 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 The first part of the Sequential Screen reports that her risk for Down syndrome decreased from her age-related risk of 1:620 to 1:10,000 and her Trisomy 18 risk decreased from her age-related risk of 1:2,200 to 1:10,000. Based on these results Dr. Doll's recommendation is for patient to follow-up with AFP blood draw after 15wks to screen for ONTD and level II anatomy scan after 18wks. Dysthymic disorder 6 Overview: Depression (non-psychotic) Generalized anxiety disorder 01/09/2006 Overview: Anxiety, Generalized documented as of this encounter (statuses as of 05/02/2023) [facility] History of Past illness Narrative* Problem Noted Date Diagnosed Date Resolved Date Knee injury, right, initial encounter 01/11/2022 04/22/2022 Supervision of other normal 05/25/2012 03/17/2015 Overview: Girl on us- steph Patient requested diagnostic testing 02/13/2012 03/17/2015 Overview: negative Sequential screen first trimester. The first part of the Sequential Screen reports that her risk for Down syndrome decreased from her age-related risk of 1:620 to 1:10,000 and her Trisomy 18 risk decreased from her age-related risk of 1:2,200 to 1:10,000. Based on these results Dr. Doll's recommendation is for patient to follow-up with AFP blood draw after 15wks to screen for ONTD and level II anatomy scan after 18wks. Dysthymic disorder 6 Overview: Depression (non-psychotic) Generalized anxiety disorder 01/09/2006 Overview: Anxiety, Generalized documented as of this encounter (statuses as of 05/08/2023) [facility] History of Past illness Narrative* Problem Noted Date Diagnosed Date Resolved Date Knee injury, right, initial encounter 01/11/2022 04/22/2022 Supervision of other normal 05/25/2012 03/17/2015 Overview: Girl on us- steph Patient requested diagnostic testing 02/13/2012 03/17/2015 Overview: negative Sequential screen first trimester. The first part of the Sequential Screen reports that her risk for Down syndrome decreased from her age-related risk of 1:620 to 1:10,000 and her Trisomy 18 risk decreased from her age-related risk of 1:2,200 to 1:10,000. Based on these results Dr. Doll's recommendation is for patient to follow-up with AFP blood draw after 15wks to screen for ONTD and level II anatomy scan after 18wks. Dysthymic disorder 6 Overview: Depression (non-psychotic) Generalized anxiety disorder 01/09/2006 Overview: Anxiety, Generalized documented as of this encounter (statuses as of 06/24/2023) [facility] Instructions* Patient Instructions* Christy Mike APRN.CNP - 01/10/2022 11:43 AM EDT Continue icing and elevating. Ibuprofen/antiinflammatories as needed. Get a compression brace. No extra walking, but do keep using it. [facility] History of Present illness Narrative* Christy SHAI Mike.JUDY - 01/10/2022 11:32 AM EDT Chief Complaint Patient presents with: Acute Visit: right knee injury HPI Shaniqua Theodore is a 36 year old female who presents here today for Above Complaints. Today: Right knee: For about the past 3-4 weeks. Believes it was injured when working out. Pushed it further than she should have. Took a break from exercising. Took a long walk and became very painful. Feels like it may give out. Limited ROM. Achy, like jelly. If overdoes it, feels like popping. Has beendoing ice and elevating. Took ibuprofen once, did not help. Was swollen this past weekend, but the swelling does seem to have improved. No redness, not hot. Past medical history, appointments, medications, allergies reviewed. 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 Current Medications Current Outpatient Medications on File Prior to Visit Medication Sig escitalopram oxalate (LEXAPRO) 10 mg tablet Take 1 tablet by mouth once daily. lidocaine 5 % gel Apply 1 application to affected area as directed. No current facility-administered medications on file prior to visit. Social History Social History Tobacco Use Smoking status: Never Smoker Smokeless tobacco: Never Used Vaping Use Vaping Use: Never used Substance Use Topics Alcohol use: Yes Drug use: No Review of Symptoms REVIEW OF SYSTEMS See HPI, otherwise negative EXAM: BP 100/68 Pulse 71 Resp 16 Wt 120.7 kg (266 lb) LMP 12/21/2021 (Exact Date) SpO2 98% BMI 37.10 kg/m General Appearance: Well appearing, alert, in no acute distress, well-hydrated, well nourished. andObese. Extremities: No deformities, edema, skin discoloration, clubbing or cyanosis. Good capillary refill. , Pulses: 2+. Musculoskeletal: Positive findings: joint location: on right knee pain, swelling, painful movement,loss of ROM and effusion, Health Maintenance List DEPRESSION SCREENING due on 06/14/2022 DTAP,TDAP,TD(9 - Td or Tdap) due on 10/03/2024 PAP TESTING due on 06/09/2025 HPV TESTING due on 06/09/2025 INFLUENZA Completed HEPATITIS C SCREENING Completed HIV SCREENING Completed COVID-19 VACCINE Completed MENINGOCOCCAL CONJUGATE Aged Out Data reviewed Previous records, office notes. ASSESSMENT/PLAN: 1. Knee injury, right, initial encounter - ICD9: 959.7, ICD10: S89.91XA (primary diagnosis) Xray of knee. Compression/sleeve brace. Continue elevation, icing, antiinflammatories prn. Start physical therapy. May consider MRI in the future. - XR KNEE INJURY 4V AP/LAT/OBLS RIGHT - CONSULT TO PHYSICAL THERAPY 2. Gait disturbance - ICD9: 781.2, ICD10: R26.9 Xray of knee. Compression/sleeve brace. Continue elevation, icing, antiinflammatories prn. Start physical therapy. May consider MRI in the future. - XR KNEE INJURY 4V AP/LAT/OBLS RIGHT - CONSULT TO PHYSICAL THERAPY 3. Decreased ROM of right knee - ICD9: 719.56, ICD10: M25.661 Xray of knee. Compression/sleeve brace. Continue elevation, icing, antiinflammatories prn. Start physical therapy. May consider MRI in the future. - XR KNEE INJURY 4V AP/LAT/OBLS RIGHT - CONSULT TO PHYSICAL THERAPY Christy Mike APRN.CNP [facility] History of Past illness Narrative* Problem Noted Date Resolved Date Supervision of other normal 05/25/2012 03/17/2015 Overview: Girl on - steph Patient requested diagnostic testing 02/13/2012 03/17/2015 Overview: negative Sequential screen first trimester. The first part of the Sequential Screen reports that her risk for Down syndrome decreased from her age-related risk of 1:620 to 1:10,000 and her Trisomy 18 risk decreased from her age-related risk of 1:2,200 to 1:10,000. Based on these results Dr. Doll's recommendation is for patient to follow-up with AFP blood draw after 15wks to screen for ONTD and level II anatomy scan after 18wks. 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 The first part of the Sequential Screen reports that her risk for Down syndrome decreased from her age-related risk of 1:620 to 1:10,000 and her Trisomy 18 risk decreased from her age-related risk of 1:2,200 to 1:10,000. Based on these results Dr. Doll's recommendation is for patient to follow-up with AFP blood draw after 15wks to screen for ONTD and level II anatomy scan after 18wks. 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 The first part of the Sequential Screen reports that her risk for Down syndrome decreased from her age-related risk of 1:620 to 1:10,000 and her Trisomy 18 risk decreased from her age-related risk of 1:2,200 to 1:10,000. Based on these results Dr. Doll's recommendation is for patient to follow-up with AFP blood draw after 15wks to screen for ONTD and level II anatomy scan after 18wks. 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 The first part of the Sequential Screen reports that her risk for Down syndrome decreased from her age-related risk of 1:620 to 1:10,000 and her Trisomy 18 risk decreased from her age-related risk of 1:2,200 to 1:10,000. Based on these results Dr. Doll's recommendation is for patient to follow-up with AFP blood draw after 15wks to screen for ONTD and level II anatomy scan after 18wks. 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 The first part of the Sequential Screen reports that her risk for Down syndrome decreased from her age-related risk of 1:620 to 1:10,000 and her Trisomy 18 risk decreased from her age-related risk of 1:2,200 to 1:10,000. Based on these results Dr. Doll's recommendation is for patient to follow-up with AFP blood draw after 15wks to screen for ONTD and level II anatomy scan after 18wks. 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 The first part of the Sequential Screen reports that her risk for Down syndrome decreased from her age-related risk of 1:620 to 1:10,000 and her Trisomy 18 risk decreased from her age-related risk of 1:2,200 to 1:10,000. Based on these results Dr. Doll's recommendation is for patient to follow-up with AFP blood draw after 15wks to screen for ONTD and level II anatomy scan after 18wks. 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 Overview: Depression (non-psychotic) Generalized anxiety disorder Overview: Anxiety, Generalized documented as of this encounter (statuses as of 02/17/2022) [facility] Knee injury, right, initial encounter- Primary Gait disturbance Abnormality of gait Decreased ROM of right knee documented in this encounter [facility] note* Diagnosis Knee injury, right, initial encounter- Primary Decreased ROM of right knee Gait disturbance Abnormality of gait Effusion of right knee Effusion of lower leg joint documented in this encounter [facility] note* Diagnosis Knee injury, right, initial encounter documented in this encounter [facility] note* Diagnosis Knee injury, right, initial encounter- Primary documented in this encounter [facility] note* Diagnosis Knee injury, right, initial encounter- Primary [facility]* Diagnosis Knee injury, right, initial encounter- Primary [facility]* Diagnosis Encounter for gynecological examination (general) (routine) without abnormal findings- Primary Screening for cervical cancer Screening for malignant neoplasm of the cervix Encounter for screening for human papillomavirus (HPV) Special screening examination for human papillomavirus (HPV) documented in this encounter [facility] note* Diagnosis Well adult exam- Primary Routine general medical examination at a [facility] facility Kidney donor Perimenopausal disorder Unspecified menopausal and postmenopausal disorder [facility]* Diagnosis Urinary frequency- Primary documented in this encounter [facility] Reason for Referral Specialty Diagnoses / Procedures Referred By Tripp lopez Referred To Contact [facility] Diagnoses Knee injury, right, initial encounter Procedures CONSULT TO PHYSICAL THERAPY PHYSICAL THERAPY EVALUATION HIGH COMPLEX 45 MINS Christy Mike APRN.HANDLE SANDER OPERATOR [address] [place] [address] [facility] [place] [address] [place] [address] Referral ID Status Reason Start Date Expiration Date Visits Requested Visits Authorized [id number] Authorized Auto-Generat ed Referral 08/21/2021 08/20/2022 30 30 Specialty Diagnoses / Procedures Referred By Tripp lopez Referred To Contact XR IMAGING Diagnoses Knee injury, right, initial encounter Procedures XR KNEE INJURY 4V AP/LAT/OBLS RIGHT RADIOLOGIC EXAM KNEE COMPLETE 4/MORE VIEWS Christy Mike APRN.HANDLE SANDER OPERATOR [address] [place] [address] Xr Imaging Referral ID Status Reason Start Date Expiration Date V isits Requested Visits Authorized [id number] Closed Auto-Generate d Referral 01/10/2022 02/09/2023 1 1 Specialty Diagnoses / Procedures Referred By Tripp t Referred To Contact Orthopedics Diagnoses Knee injury, right, initial encounter Decreased ROM of right knee Gait disturbance Effusion of right knee Procedures CONSULT TO ORTHOPAEDICS OFFICE/OUTPATIENT NEW HIGH MDM 60-74 MINUTES Christy Mike APRN.HANDLE SANDER OPERATOR [address] [place] [address] Referral ID Status Reason Start Date Expiration Date Visits Requested Visits Authorized [id number] Pending Review PCP Requested Referral 01/10/2022 01/10/2023 1 1 Advance Directives No Advanced Directives Records FoundDocuments on File Type Date 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 Advance Directive(s) Documents on File Type Date 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 Advance Directive(s) Summary Purpose Family History No Family History Records Found Additional Source Comments Source Comments (unrecognize d section and content) In the event this informatio n is protected by the Federal Confidentiality of Alcohol and Drug Abuse Patient Records regulations: The Federal rules restrict any use of the information to criminally investigate or prosecute any alcohol or drug abuse patient.[facility] the event this information is protected by the Federal Confidentiality of Alcohol and Drug Abuse Patient Records regulations: The Federal rules restrict any use of the information to criminally investigate or prosecute any alcohol or drug abuse patient.[facility] the event this information is protected by the Federal Confidentiality of Alcohol and Drug Abuse Patient Records regulations: The Federal rules restrict any use of the information to criminally investigate or prosecute any alcohol or drug abuse patient.[facility] the event this information is protected by the Federal Confidentiality of Alcohol and Drug Abuse Patient Records regulations: The Federal rules restrict any use of the information to criminally investigate or prosecute any alcohol or drug abuse patient.[facility] the event this information is protected by the Federal Confidentiality of Alcohol and Drug Abuse Patient Records regulations: The Federal rules restrict any use of the information to criminally investigate or prosecute any alcohol or drug abuse patient.[facility] the event this information is protected by the Federal Confidentiality of Alcohol and Drug Abuse Patient Records regulations: The Federal rules restrict any use of the information to criminally investigate or prosecute any alcohol or drug abuse patient.[facility] the event this information is protected by the Federal Confidentiality of Alcohol and Drug Abuse Patient Records regulations: The Federal rules restrict any use of the information to criminally investigate or prosecute any alcohol or drug abuse patient.[facility] the event this information is protected by the Federal Confidentiality of Alcohol and Drug Abuse Patient Records regulations: The Federal rules restrict any use of the information to criminally investigate or prosecute any alcohol or drug abuse patient.[facility] the event this information is protected by the Federal Confidentiality of Alcohol and Drug Abuse Patient Records regulations: The Federal rules restrict any use of the information to criminally investigate or prosecute any alcohol or drug abuse patient.[facility] the event this information is protected by the Federal Confidentiality of Alcohol and Drug Abuse Patient Records regulations: The Federal rules restrict any use of the information to criminally investigate or prosecute any alcohol or drug abuse patient.[facility] the event this information is protected by the Federal Confidentiality of Alcohol and Drug Abuse Patient Records regulations: The Federal rules restrict any use of the information to criminally investigate or prosecute any alcohol or drug abuse patient.[facility]In the event this information is protected by the Federal Confidentiality of Alcohol and Drug Abuse Patient Records regulations: The Federal rules restrict any use of the information to criminally investigate or prosecute any alcohol or drug abuse patient.[facility] the event this information is protected by the Federal Confidentiality of Alcohol and Drug Abuse Patient Records regulations: The Federal rules restrict any use of the information to criminally investigate or prosecute any alcohol or drug abuse patient.[facility] the event this information is protected by the Federal Confidentiality of Alcohol and Drug Abuse Patient Records regulations: The Federal rules restrict any use of the information to criminally investigate or prosecute any alcohol or drug abuse patient.[facility] Reason for Visit (unrecogniz ed section and content) Specialty Diagnoses / Procedures Referred By Tripp lopez Referred To Contact [facility] Diagnoses Knee injury, right, initial encounter Procedures CONSULT TO PHYSICAL THERAPY PHYSICAL THERAPY EVALUATION HIGH COMPLEX 45 MINS Christy Mike, SHAI.HANDLE SANDER OPERATOR [address] [place] [address] [facility] [place] [address] [place] [address] Referral ID Status Reason Start Date Expiration Date Visits Requested Visits Authorized [id number] Authorized Auto-Generat ed Referral 08/21/2021 08/20/2022 30 30 Reason Comments Physical Therapy Reason Comments Acute Visit right knee injury Reason Comments Results Consult Reason Comments PT Eval Patient Education Reason Comments Well Woman Reason Comments Yearly Exam Reason Comments Urinary Frequency With pain x3 days Care Teams (unrecognized sec tion and content) New Home Sales Consultant Relationship Specialty Start Date End Date Seamus Erickson DO [address] [place] [address] PCP - General Family Practice 08/23/16 New Home Sales Consultant Relationship Specialty Start Date End Date Seamus Erickson DO [address] [place] [address] PCP - General Family Practice 08/23/16 New Home Sales Consultant Relationship Specialty Start Date End Date Seamus Erickson DO [address] [place] [address] PCP - General Family Practice 08/23/16 New Home Sales Consultant Relationship Specialty Start Date End Date Seamus Erickson DO [address] [place] [address] PCP - General Family Practice 08/23/16 New Home Sales Consultant Relationship Specialty Start Date End Date Seamus Erickson DO [address] [place] [address] PCP - General Family Practice 08/23/16 New Home Sales Consultant Relationship Specialty Start Date End Date Seamus Erickson, DO [address] [facility] [place] [address] PCP - General Family Medicine 08/23/16 New Home Sales Consultant Relationship Specialty Start Date End Date Seamus Erickson DO [address] [place] [address] PCP - General Family Medicine 08/23/16 New Home Sales Consultant Relationship Specialty Start Date End Date Seamus Erickson DO [address] [place] [address] PCP - General Family Medicine 08/23/16 New Home Sales Consultant Relationship Specialty Start Date End Date Seamus Erickson DO [address] [place] [address] PCP - General Family Medicine 08/23/16 New Home Sales Consultant Relationship Specialty Start Date End Date Seamus Erickson DO [address] [place] [address] PCP - General Family Medicine 08/23/16 New Home Sales Consultant Relationship Specialty Start Date End Date Seamus Erickson DO [address] [place] [address] PCP - General Family Medicine 08/23/16 New Home Sales Consultant Relationship Specialty Start Date End Date Seamus Erickson DO [address] [place] [address] PCP - General Family Medicine 08/23/16 INFORMATION SOURCE (unrecogn ized section and content) FOR RECORDS PERTAINING TO PATIENTS WHO ARE OR HAVE BEEN ENROLLED IN A CHEMICAL DEPENDENCY/SUBSTANCEABUSE PROGRAM, SOME INFORMATION MAY BE OMITTED. This clinical summary was aggregated from multiple sources. Caution should be exercised in using it in the provision of clinical care. This summary normalizes information from multiple sources, and as a consequence, information in this document may materially change the coding, format and clinical context of patient data. In addition, data may be omitted in some cases. CLINICAL DECISIONS SHOULD BE BASED ON THE PRIMARY CLINICAL RECORDS. [facility]. provides no warranty or guarantee of the accuracy or completeness of information in this document.
== END 2023-08-17 00:10 | disposition home or self-care (01) ==
PROVIDERS: Emergency Provider Emergency Medicine; PCP Student in an Organized Health Care Education/Training Program; Visit Provider Emergency Medicine
DX: S61.213A Laceration without foreign body of left middle finger without damage to nail, initial encounter (principal); W25.XXXA Contact with sharp glass, initial encounter; Y93.89 Activity, other specified
CPT/HCPCS: 12002; 73130; 99284